=== PATIENT | female | born 2000 | race Caucasian/White ===

== ENCOUNTER 2024-02-05 08:33 | Outpatient (CLI) | payer BC ==
[2024-02-05 22:21] LABS: CHLAMYDIA TRACHOMATIS DNA NEGATIVE (NEGATIVE); NEISSERIA GONORRHOEAE DNA NEGATIVE (NEGATIVE); TRICHOMONAS VAGINALIS DNA NEGATIVE (NEGATIVE)
== END 2024-02-05 08:34 | disposition home or self-care (01) ==
LOC: LAB.S 08:33
PROVIDERS: ATTEND Family Medicine
DX: Z51.81 Encounter for therapeutic drug level monitoring (principal); Z79.899 Other long term (current) drug therapy; Z11.3 Encounter for screening for infections with a predominantly sexual mode of transmission; Z72.52 High risk homosexual behavior
CPT/HCPCS: 87389; 87491; 87591; 87661